=== PATIENT | female | born 1995 | race Caucasian/White ===

== ENCOUNTER → 2017-07-05 | Day surgery (SDC) | payer BC ==
[~2017-07-05] MED LIST: Lactated Ringers 1,000 ML IV SCH; Midazolam 1 MG/ML 2 ML SDV IV ONE; Propofol 200 MG/20 ML SDV IV ONE
[2017-07-05 12:42] VITALS: BP 144/92
--- NOTE | 2017-07-08 08:20 | OR ---
DATE OF OPERATION: 07/05/2017 PREOPERATIVE DIAGNOSIS: PERSISTENT GASTROESOPHAGEAL REFLUX DISEASE. POSTOPERATIVE DIAGNOSIS: PERSISTENT GASTROESOPHAGEAL REFLUX DISEASE. SURGEON: Akira Rosas MD PROCEDURE: ESOPHAGOGASTRODUODENOSCOPY WITH DESTIN. 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 COMPLICATIONS: None. SPECIMEN: Antral DESTIN. FINDINGS: 1. Full-length EGD. 2. Moderate size hiatal hernia with grade 1 reflux esophagitis. RECOMMENDATIONS: The patient should consider surgical consultation for hernia repair. INDICATIONS: The patient has been having persistent reflux without improvement with prescription on proton pump therapy. Dr. Barbour sent her for EGD. DESCRIPTION OF PROCEDURE: The patient was prepped and draped, placed in the left lateral decubitus position. A lubricated Olympus gastroscope was inserted over a bit and advanced to cricopharyngeus and easily intubated in the esophagus. Esophageal lining was benign in its entire course. The most distal portion has some very mild reflux esophagitis without any overt ulceration. Z- line was crisp around 36.5 cm with an associated hiatal hernia. There was a nonobstructing Schatzki ring present as well. The scope was advanced into the stomach through the pylorus into the 2nd portion of the duodenum. This in the duodenal bulb were benign. The stomach was evaluated thoroughly. No signs of any peptic ulcer disease, polyps, mass, ulcerations or otherwise. A CLOtest was obtained. We brought the scope back up into the distal esophagus for biopsies of the areas of esophagitis, but patient was really having a lot of coughing and gagging and Anesthesia requested termination of the procedure due to patient's intolerance at that time, so we ultimately did not biopsy her distal esophagus. There were no complications. The patient was stable in the recovery room. COLE/DONG /[id number]
== END ==
LOC: CC.SDS 11:01
PROVIDERS: ATTEND Family Medicine
DX: K21.0 Gastro-esophageal reflux disease with esophagitis (principal); K44.9 Diaphragmatic hernia without obstruction or gangrene; E78.5 Hyperlipidemia, unspecified; E04.1 Nontoxic single thyroid nodule; E55.9 Vitamin D deficiency, unspecified; Z79.899 Other long term (current) drug therapy
CPT/HCPCS: 36415; 43239; 84703; 87081; J2250; J2704; J7120